=== PATIENT | female | born 1995 | race Hispanic/Latino ===

== ENCOUNTER 2017-09-29 17:18 | Outpatient (CLI) | payer MEDICAID ==
[2017-09-29 18:52] LABS: Bacteria,Urine 1+ /HPF (Negative); Bilirubin,Urine NEG (Negative); Blood,Urine NEG (Negative); Color,Urine Yellow (Yellow); Protein,Urine <15 mg/dL mg/dL (Negative); Urobilinogen,Urine < 2.0 mg/dL (<2.0)
[2017-09-29 19:26] VITALS: BP 116/67
[2017-09-29] MEDS ORDERED: LACTATED RINGERS 1,000 ML IV ONE (19:49)
[2017-09-29] MEDS ORDERED: NORMOSOL-R PH 7.4 1,000 ML IV ONE (20:11)
[2017-09-29] MEDS ORDERED: ZOFRAN IV PRN (20:47)
== END 2017-09-29 21:35 | disposition home or self-care (01) ==
LOC: TRG 17:18
PROVIDERS: ATTEND Obstetrics & Gynecology
DX: O47.03 False labor before 37 completed weeks of gestation, third trimester (principal); Z3A.33 33 weeks gestation of pregnancy
CPT/HCPCS: 59025; 81001; 96360; 96374; J2405

== ENCOUNTER 2017-11-22 15:37 | Inpatient (IN) | payer MEDICAID ==
[2017-11-22] MEDS ORDERED: STADOL IV PRN (16:42)
[2017-11-22 17:08] LABS: Basophils % (Auto) 0.3 % (0.0-1.8); Eosinophils % (Auto) 0.3 % (0.0-4.3); Hematocrit 31.8 % (30.3-42.9); Hemoglobin 10.9 gm/dl (10.1-14.3); Lymphocytes # (Auto) 1.8 K/mm3 (1.2-5.4); Lymphocytes % (Auto) 16.7 % (13.4-35.0); Mean Corpuscular HGB Conc 34 % (30-34); Mean Corpuscular Hemoglobin 28 pg (28-32); Mean Corpuscular Volume 83 fl (79-97); Monocytes # (Auto) 0.7 K/mm3 (0.0-0.8); Monocytes % (Auto) 6.8 % (0.0-7.3); Platelet Count 188 K/mm3 (140-440); Red Blood Count 3.85 M/mm3 (3.65-5.03); Red Cell Distribution Width 16.1 % (13.2-15.2)
[2017-11-22] MEDS: LACTATED RINGERS 1,000 ML IV SCH (19:33)
[2017-11-22] MEDS ORDERED: NARCAN 2 MG/2 ML IV PRN (20:06)
[2017-11-22] MEDS ORDERED: ePHEDrine SULFATE IV PRN (20:06)
[2017-11-22] MEDS ORDERED: PITOCin/NS 30 UNIT/500ML 30 UNITS/500 ML BAG IV SCH (21:05)
[2017-11-22] MEDS: fentaNYL-BUPIV 2 MCG/ML-0.125% 200 MCG/100 ML BAG EPIDURAL SCH (21:07)
--- NOTE | 2017-11-22 23:39 | History and Physical Report ---
History of Present Illness Date of examination: 11/22/17 Date of admission: 11/22/17 15:38 Chief complaint: I'm having contractions History of present illness: Patient is a 21 year old G1Po who presents at 40.3 weeks in active labor with cervical dilation to 5 cm. Admit for augmentation of labor. AROM when able. Anticipate . Past History Past Medical History: no pertinent history Past Surgical History: no surgical history Social history: single - Obstetrical History Expected Date of Delivery: 11/17/17 Actual Gestation: 40 Week(s) 5 Day(s) : 1 Number of Living Children: 0 Medications and Allergies Allergies Allergy/AdvReac Type Severity Reaction Status Date / Time No Known Allergies Allergy Unverified 09/29/17 17:42 Home Medications Medication Instructions Recorded Confirmed Last Taken Type No Known Home Medications [No 09/29/17 11/22/17 Unknown History Reported Home Medications] Active Meds: Active Medications Butorphanol Tartrate (Stadol) 2 mg IV Q2H PRN PRN Reason: Labor Pain Ephedrine Sulfate (Ephedrine Sulfate) 10 mg IV Q2M PRN PRN Reason: Hypotension Lactated Ringer's (Lactated Ringers) 1,000 mls @ 125 mls/hr IV DIRECT MICAELA Last Admin: 11/22/17 19:33 Dose: 125 mls/hr Fentanyl/Bupivacaine/Sodium Chlor (Fentanyl-Bupiv 2 Mcg/Ml-0.125%) 200 mcg in 100 mls @ 12 mls/hr EPIDURAL TITR MICAELA; Protocol Last Admin: 11/22/17 21:07 Dose: 12 mls/hr Oxytocin/Sodium Chloride (Pitocin/Ns 30 Unit/500ml) 30 units in 500 mls @ 2 mls /hr IV TITR MICAELA; Protocol Last Admin: 11/22/17 21:57 Dose: 2 ml/hr, 2 mls/hr Naloxone HCl (Narcan 2 Mg/2 Ml) 0.2 mg IV Q5M PRN PRN Reason: Respiratory sedation Review of Systems All systems: negative Genitourinary: leakage of fluid, contractions - Vital Signs Vital signs: Vital Signs Temp Resp 98.0 F 18 11/22/17 15:54 11/22/17 15:54 Temp Pulse Resp BP Pulse Ox 98.4 F 67 20 100/65 96 11/22/17 19:25 11/22/17 23:31 11/22/17 19:25 11/22/17 23:25 11/22/17 23:31 - Physical Exam Breasts: Cardiovascular: Regular rate, Normal S1, Normal S2 Lungs: Positive: Clear to auscultation, Normal air movement Abdomen: Positive: normal appearance, soft, normal bowel sounds. Negative: distention, tenderness Genitourinary (Female): Positive: normal external genitalia, normal perenium Vulva: both: normal Vagina: Positive: normal moisture. Negative: discharge Cervix: Negative: lesion, discharge Uterus: Positive: normal size, normal contour Adnexa: both: normal Anus/Rectum: Positive: normal perianal skin, heme negative. Negative: rectal mass, hemorrhoids Extremities: Deep Tendon Reflex Grade: Normal +2 - Obstetrical FHR: auscultation normal Cervical Dilatation: 5 Cervical Effacement Percentage: 70 station: -2 Results Result Diagrams: 11/22/17 16:30 Abnormal lab results 11/22/17 Range/Units 16:30 RDW 16.1 H (13.2-15.2) % Seg Neutrophils % 75.9 H (40.0-70.0) % Seg Neutrophils # 8.2 H (1.8-7.7) K/mm3 All other labs normal. Assessment and Plan IUP at 40.3 weeks in active labor.Admit for L&D. AROM when able. Anticipate .
[2017-11-23] MEDS: LACTATED RINGERS 1,000 ML IV SCH (03:12)
[2017-11-23] MEDS ORDERED: BICITRA PO ONE (04:36)
[2017-11-23] MEDS: fentaNYL-BUPIV 2 MCG/ML-0.125% 200 MCG/100 ML BAG EPIDURAL SCH (05:06)
[2017-11-23] MEDS ORDERED: PITOCin/NS 20 UNIT/1000ML DRIP 20,000 MILLIUNITS/1,000 ML BAG IV ONE ×2 (06:35→08:05)
[2017-11-23] MEDS ORDERED: MINERAL OIL ONE (06:35)
--- NOTE | 2017-11-23 07:37 | Procedure Note ---
OB Delivery Note - Delivery Date of Delivery: 11/23/17 Surgeon: MARIELY CORRALES Estimated blood loss: 200cc - Vaginal Delivery presentation: vertex Delivery position: OA Intrapartum events: none Delivery induction: none Delivery augmentation: pitocin Delivery monitor: external FHT, external uterine Route of delivery: Delivery placenta: spontaneous Delivery cord: 3 umbilical vessels Delivery laceration: 1st degree Delivery repair: vicryl Anesthesia: epidural Delivery comments: Viable male delivered over intact perineum with 3vc. Apgars 7,9. Weight 9 pounds 5 ounces. placed on maternal abdomen with spontaneous cry. Placenta delivered spontaneously and intact. Small laceration repaired with 2.0 vicryl. Patient tolerated procedure well. Excellent hemostasis - Infant A at 1 minute: 7 at 5 minutes: 9 Infant Gender: Male (9 pounds 5 ounces)
[2017-11-23] MEDS ORDERED: MINERAL OIL TOPICAL LIGHT TP PRN (12:59)
[2017-11-23] MEDS ORDERED: PITOCin/NS 20 UNIT/1000ML DRIP 20 UNITS/1,000 ML BAG IV SCH (13:00)
[2017-11-23] MEDS ORDERED: MINERAL OIL PO PRN (13:05)
[2017-11-23] MEDS ORDERED: NORCO 5/325 PO PRN (13:30)
[2017-11-23] MEDS ORDERED: TYLENOL PO PRN (13:30)
[2017-11-23 19:18] LABS: Hematocrit 25.3 % (30.3-42.9); Hemoglobin 8.5 gm/dl (10.1-14.3)
[2017-11-23] MEDS: MOTRIN PO SCH (19:34)
[2017-11-24] MEDS: MOTRIN PO SCH ×2 (01:00→05:51)
--- NOTE | 2017-11-25 05:51 | Progress Note ---
Subjective - Subjective Date of service: 11/24/17 Interval history: Patient is a 21 year old G1Po who presents at 40.3 weeks in active labor with cervical dilation to 5 cm. Admit for augmentation of labor. AROM when able. Anticipate . Patient reports: appetite normal, voiding normally, pain well controlled, ambulating normally [place]: doing well Objective - Vital Signs Latest vital signs: Vital Signs Temp Pulse Resp BP Pulse Ox 11/25/17 02:08 97.7 F 72 20 101/62 98 11/24/17 16:43 98.3 F 89 18 109/72 95 11/24/17 08:24 98.0 F 84 20 109/66 98 Intake and Output 11/24/17 11/24/17 11/25/17 14:59 22:59 06:59 Intake Total 960 600 240 Output Total 850 Balance 110 600 240 Intake: Oral 240 240 240 Intake, Free Water 720 360 Output: Urine 850 Void 850 Other: Total, Intake Amount 240 240 240 Total, Output Amount 850 # Voids Indwelling Catheter 2 Void 1 1
--- NOTE | 2017-11-25 05:52 | Discharge Summary ---
Providers - Providers Date of Admission: 11/22/17 15:38 Date of discharge: 11/25/17 Attending physician: MARIELY CORRALES Primary care physician: MARIELY CORRALES Hospitalization Reason for admission: active labor Delivery: Episiotomy: none Laceration: 2nd degree Discharge diagnosis: IUP at term delivered baby: male Condition at discharge: Good Disposition: DC-01 TO HOME OR SELFCARE Plan - Discharge Medications Prescriptions: Ibuprofen [Motrin] 800 mg PO Q8HR PRN #40 tablet PRN Reason: Pain - Provider Discharge Summary Activity: routine, no sex for 6 weeks, no heavy lifting 4 weeks, no strenuous exercise Diet: routine Instructions: routine Additional instructions: [] Smoking cessation referral if applicable(refer to patient education folder for contact #) [] Refer to [facility] Booklet Call your doctor immediately for: * Fever > 100.5 * Heavy vaginal bleeding ( >1 pad per hour) * Severe persistent headache * Shortness of breath * Reddened, hot, painful area to leg or breast * Drainage or odor from incision. * Keep incision clean and dry at all times and follow doctor's instructions regarding bathing/showering - Follow up plan Follow up: MARIELY CORRALES MD [Primary Care Provider] - 6 Weeks
[2017-11-25 10:41] VITALS: BP 113/69
== END 2017-11-25 11:40 | disposition home or self-care (01) | DRG 775 ==
LOC: TRG 15:37 → LD 15:38 → TRG 15:38 → OB 11-23 11:15
PROVIDERS: ADMIT Obstetrics & Gynecology; ATTEND Obstetrics & Gynecology
PROC: 10E0XZZ Delivery of Products of Conception, External Approach (ICD-10-PCS; principal; 2017-11-23)
PROC: 0HQ9XZZ Repair Perineum Skin, External Approach (ICD-10-PCS; 2017-11-23)
PROC: 00HU33Z Insertion of Infusion Device into Spinal Canal, Percutaneous Approach (ICD-10-PCS; 2017-11-23)
PROC: 3E0R3BZ Introduction of Anesthetic Agent into Spinal Canal, Percutaneous Approach (ICD-10-PCS; 2017-11-23)
PROC: 30233S1 Transfusion of Nonautologous Globulin into Peripheral Vein, Percutaneous Approach (ICD-10-PCS; 2017-11-24)
DX: O70.0 First degree perineal laceration during delivery (principal); Z3A.40 40 weeks gestation of pregnancy; Z37.0 Single live birth; Z29.13 Encounter for prophylactic Rho(D) immune globulin
CPT/HCPCS: 36415; 85014; 85018; 85025; 85461; 86592; 86850; 86900; 86901; 99211; G0463; J2590; J2790; J7120